=== PATIENT | female | born 2000 | race Asian ===

== ENCOUNTER 2023-01-05 10:21 | Emergency (ER) | payer OTHER ==
[~2023-01-05] VITALS: Ht 160 cm; Wt 54.5 kg
[2023-01-05 10:26] VITALS: BP 135/80; PULSE 88; RESP 16; TEMP 98.4
[2023-01-05] MEDS ORDERED: LORA10TA7 PO (10:27)
[2023-01-05 11:14] LABS: COVID AG,FIA SOURCE NASAL SWAB
[2023-01-05 11:41] LABS: SARS-COV2 (COVID) ANTIGEN,FIA Negative (Negative)
== END 2023-01-05 12:00 | disposition home or self-care (01) ==
LOC: EMS 10:22
DX: Z11.52 Encounter for screening for COVID-19 (principal); Z20.822 Contact with and (suspected) exposure to COVID-19
CPT/HCPCS: 99283